=== PATIENT | male | born 1990 | race African-American/Black ===

== ENCOUNTER 2016-10-05 15:01 | Emergency (ER) | payer OTHER ==
[~2016-10-05] VITALS: Ht 167.6 cm; Wt 67.0 kg
[2016-10-05] MEDS ORDERED: SODIUM CHLORIDE 0.9% 1,000 ML IV ONE (15:35)
[2016-10-05] MEDS ORDERED: DIPHENHYDRAMINE 50MG/ML VIAL IV ONE (15:45)
[2016-10-05] MEDS ORDERED: METHYLPREDNISOLONE SOD SUCC 125 MG/2 ML VIAL IV ONE (15:45)
[2016-10-05] MEDS ORDERED: FAMOTIDINE 20MG/2ML VIAL IV ONE (15:45)
[2016-10-05 20:02] VITALS: BP 126/83
== END 2016-10-05 20:13 | disposition home or self-care (01) ==
LOC: ER 17:05
DX: T50.B95A Adverse effect of other viral vaccines, initial encounter (principal); Y92.89 Other specified places as the place of occurrence of the external cause
CPT/HCPCS: 96361; 96374; 96375; 99285; J1200; J2930; J3490; J7030